=== PATIENT | female | born 1960 | race Caucasian/White ===

== ENCOUNTER 2018-05-15 07:24 | Emergency (ER) | payer OTHER ==
[~2018-05-15] VITALS: Ht 157.5 cm; Wt 72.7 kg
[~2018-05-15 07:24] MED LIST: ENAL2.5 PO; FURO40 PO; LEVO25TA4 PO; OLME1TAB13 PO
[2018-05-15] MEDS ORDERED: THYR30 PO (07:47)
[2018-05-15] MEDS ORDERED: HYDR25TA PO (07:47)
[2018-05-15] MEDS ORDERED: NITR.4 SL (07:47)
[2018-05-15] MEDS ORDERED: POTA25TA7 PO (07:47)
[2018-05-15] MEDS ORDERED: LISI-660 PO (07:47)
[2018-05-15] MEDS ORDERED: VERA80 PO (07:47)
[2018-05-15] MEDS ORDERED: CloNIDine HCL 0.1 MG TABLET PO ONE (08:00)
[2018-05-15 08:20] LABS: EOSINOPHILS % (AUTO) 3.1 % (1.0-6.0); HEMATOCRIT 40.1 % (36-46); HEMOGLOBIN 13.4 g/dL (12.0-16.0); LYMPHOCYTES # (AUTO) 1.4 K/uL (1.0-4.8); LYMPHOCYTES % (AUTO) 28.9 % (22.0-44.0); MEAN CORPUSCULAR HEMOGLOBIN 29.6 pg (26.0-34.0); MEAN CORPUSCULAR HGB CONC 33.5 G/dL (31.0-37.0); MEAN CORPUSCULAR VOLUME 88 fL (80-100); MONOCYTES # (AUTO) 0.3 K/uL (0.1-1.0); MONOCYTES % (AUTO) 6.8 % (2.0-9.0); NEUTROPHILS % (AUTO) 60.2 % (40.0-70.0); PLATELET COUNT (AUTO) 164 K/uL (150-450); RED BLOOD CELL COUNT(AUTO) 4.55 MIL/uL (4.00-5.20); RED CELL DISTRIBUTION WIDTH 13.2 % (11.5-14.5)
[2018-05-15 08:26] LABS: ANION GAP 7 mmol/L (8-16); CALCIUM, TOTAL 9.4 mg/dL (8.8-10.5); CARBON DIOXIDE 26 mmol/L (22-29); CHLORIDE 104 mmol/L (98-107); CREATININE 0.67 mg/dL (0.60-1.30); GLOMERULAR FILTR. RATE CALC > 60 mL/min (>60); GLUCOSE,RANDOM 107 mg/dL (70-110); POTASSIUM 3.9 mmol/L (3.5-5.1); SODIUM SERUM 137 mmol/L (136-145); UREA NITROGEN, BLOOD 16 mg/dL (7-18)
[2018-05-15 08:32] LABS: ALANINE AMINOTRANSFERASE 47 U/L (12-78); ALKALINE PHOSPHATASE 84 U/L (46-116); ASPARTATE AMINOTRANSFERASE 22 U/L (15-37); BILIRUBIN,TOTAL 0.4 mg/dL (0.1-1.0); LIPASE 105 U/L (73-393); TOTAL PROTEIN, SERUM 7.5 g/dL (6.4-8.2)
[2018-05-15 10:32] VITALS: BP 149/69
== END 2018-05-15 10:41 | disposition home or self-care (01) ==
LOC: EMS 07:26
DX: I11.0 Hypertensive heart disease with heart failure (principal); I50.9 Heart failure, unspecified; H53.9 Unspecified visual disturbance; E03.9 Hypothyroidism, unspecified; Z91.012 Allergy to eggs; Z91.011 Allergy to milk products; Z88.8 Allergy status to other drugs, medicaments and biological substances; Z91.018 Allergy to other foods
CPT/HCPCS: 70551; 93005; 99285

== ENCOUNTER → 2018-12-13 | Outpatient (CLI) | payer OTHER ==
[~2018-12-13] MED LIST changes: -ENAL2.5 PO; -FURO40 PO; +HYDR25TA PO; -LEVO25TA4 PO; +LISI-660 PO; +NITR.4 SL; -OLME1TAB13 PO; +POTA25TA7 PO; +THYR30 PO; +VERA80 PO
== END | disposition home or self-care (01) ==
LOC: RADPV 10:22
PROVIDERS: ATTEND Legal Medicine
DX: I70.0 Atherosclerosis of aorta (principal)

== ENCOUNTER → 2018-12-21 | Outpatient (CLI) | payer OTHER | END | disposition home or self-care (01) | LOC: RADPV 10:58 | PROVIDERS: ATTEND Legal Medicine | DX: I51.7 Cardiomegaly (principal); J18.9 Pneumonia, unspecified organism ==

== ENCOUNTER → 2019-01-02 | Outpatient (CLI) | payer OTHER ==
[~2019-01-02] MED LIST changes: +IOVERSOL 350 MG/ML 100 ML VIAL ONE; +SODIUM CHLORIDE 0.9% 100 ML ONE
== END | disposition home or self-care (01) ==
LOC: RADMN 09:26
PROVIDERS: ATTEND Legal Medicine
DX: R91.8 Other nonspecific abnormal finding of lung field (principal); I70.0 Atherosclerosis of aorta; I10 Essential (primary) hypertension
CPT/HCPCS: 71260; J7050; Q9967

== ENCOUNTER → 2020-07-29 | Outpatient (CLI) | payer OTHER ==
[~2020-07-29] MED LIST changes: +HYDR-1475 PO; -HYDR25TA PO; -IOVERSOL 350 MG/ML 100 ML VIAL ONE; -NITR.4 SL; +NITR0.4T52 SL; -SODIUM CHLORIDE 0.9% 100 ML ONE
== END | disposition home or self-care (01) ==
LOC: EMPHLTH 18:23
DX: Z20.828 Contact with and (suspected) exposure to other viral communicable diseases (principal)
CPT/HCPCS: 87426

== ENCOUNTER 2023-07-05 12:34 | Emergency (ER) | payer OTHER ==
[~2023-07-05] VITALS: Ht 157.5 cm; Wt 76.4 kg
[~2023-07-05 12:34] MED LIST changes: -HYDR-1475 PO; +HYDR25TA2 PO; -LISI-660 PO; +LISI-892 PO; -VERA80 PO; +VERA80TA11 PO
[2023-07-05 12:35] VITALS: TEMP 97.9
[2023-07-05 13:20] LABS: BASOPHILS % (AUTO) 1.1 % (0.0-2.0); EOSINOPHILS % (AUTO) 3.3 % (1.0-6.0); HEMATOCRIT 42.8 % (36-46); HEMOGLOBIN 14.1 g/dL (12.0-16.0); LYMPHOCYTES # (AUTO) 1.9 K/uL (1.0-4.8); LYMPHOCYTES % (AUTO) 30.1 % (22.0-44.0); MEAN CORPUSCULAR HEMOGLOBIN 30.7 pg (26.0-34.0); MEAN CORPUSCULAR HGB CONC 33.1 G/dL (31.0-37.0); MEAN CORPUSCULAR VOLUME 93 fL (80-100); MONOCYTES # (AUTO) 0.4 K/uL (0.1-1.0); MONOCYTES % (AUTO) 6.4 % (2.0-9.0); NEUTROPHILS # (AUTO) 3.8 K/uL (1.8-7.7); NEUTROPHILS % (AUTO) 59.1 % (40.0-70.0); PLATELET COUNT (AUTO) 152 K/uL (150-450); RED BLOOD CELL COUNT(AUTO) 4.61 MIL/uL (4.00-5.20); RED CELL DISTRIBUTION WIDTH 14.2 % (11.5-14.5)
[2023-07-05 13:39] LABS: ANION GAP 10 mmol/L (8-16); CALCIUM, TOTAL 9.6 mg/dL (8.8-10.5); CARBON DIOXIDE 28 mmol/L (22-29); CHLORIDE 102 mmol/L (98-107); CREATININE 0.68 mg/dL (0.60-1.30); GLOMERULAR FILTR. RATE CALC > 60 mL/min (>60); GLUCOSE,RANDOM 95 mg/dL (70-110); POTASSIUM 3.8 mmol/L (3.5-5.1); SODIUM SERUM 140 mmol/L (136-145)
[2023-07-05 13:45] LABS: B-TYPE NATRIURETIC PEPTIDE 57 pg/mL (0-100)
[2023-07-05 14:02] LABS: ALANINE AMINOTRANSFERASE 26 U/L (12-78); ALBUMIN 4.1 g/dL (3.4-5.0); ALKALINE PHOSPHATASE 100 U/L (46-116); ASPARTATE AMINOTRANSFERASE 18 U/L (15-37); BILIRUBIN,TOTAL 0.3 mg/dL (0.1-1.0); CREATINE KINASE, TOTAL ONLY 98 U/L (26-192); TOTAL PROTEIN, SERUM 7.4 g/dL (6.4-8.2)
[2023-07-05] MEDS ORDERED: CloNIDine HCL 0.1 MG TABLET PO ONE (14:15)
[2023-07-05 15:00] VITALS: BP 144/68; PULSE 60; RESP 16
== END 2023-07-05 17:42 | disposition home or self-care (01) ==
LOC: EMS 12:34
DX: R55 Syncope and collapse (principal); I11.0 Hypertensive heart disease with heart failure; I50.9 Heart failure, unspecified; Z90.721 Acquired absence of ovaries, unilateral; Z91.011 Allergy to milk products; Z91.012 Allergy to eggs; Z91.018 Allergy to other foods
CPT/HCPCS: 70450; 71045; 80053; 82550; 83880; 84484; 85025; 93005; 99285; 36415-L1; 36415-TC

== ENCOUNTER 2025-03-04 09:51 | Inpatient (IN) | payer MEDICARE, OTHER ==
[2025-03-04 10:23] LABS: BASOPHILS % (AUTO) 0.8 % (0.0-2.0); EOSINOPHILS % (AUTO) 2.1 % (1.0-6.0); HEMATOCRIT 39.3 % (36-46); LYMPHOCYTES # (AUTO) 1.6 K/uL (1.0-4.8); LYMPHOCYTES % (AUTO) 31.6 % (22.0-44.0); MEAN CORPUSCULAR HEMOGLOBIN 30.3 pg (26.0-34.0); MEAN CORPUSCULAR VOLUME 92 fL (80-100); MONOCYTES # (AUTO) 0.4 K/uL (0.1-1.0); MONOCYTES % (AUTO) 7.7 % (2.0-9.0); NEUTROPHILS % (AUTO) 57.8 % (40.0-70.0); PLATELET COUNT (AUTO) 168 K/uL (150-450); RED BLOOD CELL COUNT(AUTO) 4.29 MIL/uL (4.00-5.20); RED CELL DISTRIBUTION WIDTH 13.8 % (11.5-14.5); WHITE BLOOD COUNT (AUTO) 5.2 K/uL (4.5-11.0)
[2025-03-04 10:31] LABS: CALCIUM, TOTAL 10.2 mg/dL (8.8-10.5); CARBON DIOXIDE 30 mmol/L (22-29); CREATININE 0.66 mg/dL (0.60-1.30); GLOMERULAR FILTR. RATE CALC > 60 mL/min (>60); GLUCOSE,RANDOM 108 mg/dL (70-110); POTASSIUM 3.9 mmol/L (3.5-5.1); SODIUM SERUM 141 mmol/L (136-145); UREA NITROGEN, BLOOD 18 mg/dL (7-18)
[2025-03-04 10:36] LABS: ANION GAP 6 mmol/L (8-16); CHLORIDE 105 mmol/L (98-107)
[2025-03-04 10:37] LABS: TROPONIN I-HIGH SENSITIVITY 22 ng/L (<51)
[2025-03-04 10:40] LABS: ALANINE AMINOTRANSFERASE 29 U/L (12-78); ALBUMIN 3.7 g/dL (3.4-5.0); ALKALINE PHOSPHATASE 88 U/L (46-116); ASPARTATE AMINOTRANSFERASE 14 U/L (15-37); BILIRUBIN,TOTAL 0.3 mg/dL (0.1-1.0); TOTAL PROTEIN, SERUM 7.1 g/dL (6.4-8.2); TROPONIN I-HIGH SENSITIVITY 23 ng/L (<51)
[2025-03-04 10:48] LABS: PROTHROMBIN TIME 10.3 SEC (9.4-11.6)
[2025-03-04] MEDS: CLOPIDOGREL BISULFATE 75 MG TABLET PO ONE (11:17)
[2025-03-04] MEDS: ASPIRIN 300 MG RECTAL SUPPOSITORY PR ONE (11:18)
[2025-03-04] MEDS: LABETALOL HCL 5 MG/ML 20 ML VIAL IVP ONE (12:04)
[2025-03-04 12:20] LABS: CHOL/HDL RATIO 3.1 (3.9-5.7); CHOLESTEROL 126 mg/dL (131-200); HDL CHOLESTEROL 41 mg/dL (40-60); LDL CHOL (CALC.) 52 mg/dL (0-130); TRIGLYCERIDES 165 mg/dL (15-150)
[2025-03-04] MEDS: CloNIDine HCL 0.1 MG TABLET PO ONE (12:46)
[2025-03-04] MEDS ORDERED: SODIUM CHLORIDE 0.9% 100 ML ONE (15:15)
[2025-03-04] MEDS ORDERED: IOHEXOL 350 MG/ML 100 ML VIAL ONE (15:15)
[2025-03-04] MEDS ORDERED: BISACODYL 10 MG RECTAL RECTAL SUPPOSITORY PR PRN (15:30)
[2025-03-04] MEDS ORDERED: ACETAMINOPHEN 325 MG TABLET PO PRN (15:30)
[2025-03-04] MEDS ORDERED: MORPHINE SULFATE 2 MG/ML SYRINGE IVP PRN (15:30)
[2025-03-04] MEDS ORDERED: MAGNESIUM HYDROXIDE SUSPENSION 30 ML UDCUP PO PRN (15:30)
[2025-03-04] MEDS ORDERED: HYDROCODONE/ACETAMINOPHEN 5-325 MG TABLET PO PRN (15:30)
[2025-03-04] MEDS ORDERED: ONDANSETRON HCL 4 MG/2 ML VIAL IVP PRN (15:30)
[2025-03-04 15:34] VITALS: BP 131/59; PULSE 61; RESP 18; TEMP 97.8; O2SAT 98
[2025-03-04] MEDS: HEPARIN SODIUM,PORCINE 5,000 UNITS/ML VIAL SQ SCH (17:37)
[2025-03-04 19:41] VITALS: BP 148/61; PULSE 61; RESP 19; TEMP 97.9; O2SAT 98
[2025-03-04] MEDS: DOCUSATE SODIUM 100 MG CAPSULE PO SCH (21:00)
[2025-03-04 21:25] LABS: TROPONIN I-HIGH SENSITIVITY 46 ng/L (<51)
[2025-03-04 23:14] VITALS: BP 144/69; PULSE 62; RESP 18; TEMP 97.9; O2SAT 98
[2025-03-05 03:29] VITALS: BP 115/69; PULSE 73; RESP 18; TEMP 97.7; O2SAT 97
[2025-03-05 07:51] VITALS: BP 167/62; PULSE 65; RESP 18; TEMP 98.1; O2SAT 98
[2025-03-05] MEDS: PANTOPRAZOLE SODIUM 40 MG DR TABLET PO SCH (08:21)
[2025-03-05] MEDS: HYDROCHLOROTHIAZIDE 25 MG TABLET PO SCH (08:21)
[2025-03-05] MEDS: THYROID 30 MG TABLET PO SCH (08:21)
[2025-03-05] MEDS: LISINOPRIL 5 MG TABLET PO SCH (08:21)
[2025-03-05] MEDS: VERAPAMIL HCL 80 MG TABLET PO SCH (08:23)
[2025-03-05 12:17] VITALS: BP 143/59; PULSE 56; RESP 18; TEMP 98.2; O2SAT 99
[2025-03-05] MEDS: CLOPIDOGREL BISULFATE 75 MG TABLET PO SCH (14:57)
[2025-03-05] MEDS: ASPIRIN 81 MG CHEWABLE TABLET PO SCH (14:58)
[2025-03-05 16:00] VITALS: BP 141/66; PULSE 60; RESP 18; TEMP 97.9; O2SAT 97
[2025-03-05 19:58] VITALS: BP 137/64; PULSE 62; RESP 18; TEMP 98.1; O2SAT 97
[2025-03-05 23:38] VITALS: BP 142/50; PULSE 56; RESP 18; TEMP 98.8; O2SAT 97
[2025-03-06] VITALS (7 sets, daily range): BP systolic 132–160; BP diastolic 59–72; PULSE 51–61; RESP 18–21; TEMP 97.7–98.2; O2SAT 95–98
[2025-03-06 08:05] LABS: BASOPHILS % (AUTO) 0.9 % (0.0-2.0); EOSINOPHILS % (AUTO) 3.7 % (1.0-6.0); HEMOGLOBIN 13.2 g/dL (12.0-16.0); LYMPHOCYTES # (AUTO) 1.6 K/uL (1.0-4.8); LYMPHOCYTES % (AUTO) 29.8 % (22.0-44.0); MEAN CORPUSCULAR HEMOGLOBIN 30.1 pg (26.0-34.0); MEAN CORPUSCULAR VOLUME 91 fL (80-100); MONOCYTES # (AUTO) 0.4 K/uL (0.1-1.0); MONOCYTES % (AUTO) 8.1 % (2.0-9.0); NEUTROPHILS # (AUTO) 3.1 K/uL (1.8-7.7); NEUTROPHILS % (AUTO) 57.5 % (40.0-70.0); PLATELET COUNT (AUTO) 167 K/uL (150-450); RED BLOOD CELL COUNT(AUTO) 4.38 MIL/uL (4.00-5.20); RED CELL DISTRIBUTION WIDTH 13.7 % (11.5-14.5); WHITE BLOOD COUNT (AUTO) 5.5 K/uL (4.5-11.0)
[2025-03-06 08:09] LABS: ANION GAP 8 mmol/L (8-16); CARBON DIOXIDE 29 mmol/L (22-29); CHLORIDE 104 mmol/L (98-107); CREATININE 0.53 mg/dL (0.60-1.30); GLOMERULAR FILTR. RATE CALC > 60 mL/min (>60); GLUCOSE,RANDOM 97 mg/dL (70-110); POTASSIUM 3.9 mmol/L (3.5-5.1); SODIUM SERUM 141 mmol/L (136-145); UREA NITROGEN, BLOOD 24 mg/dL (7-18)
[2025-03-06] MEDS: ATORVASTATIN CALCIUM 20 MG TABLET PO SCH (21:03)
[2025-03-07 03:27] VITALS: BP 144/64; PULSE 59; RESP 20; TEMP 97.9; O2SAT 98
[2025-03-07 06:52] LABS: BASOPHILS % (AUTO) 0.8 % (0.0-2.0); EOSINOPHILS % (AUTO) 4.1 % (1.0-6.0); HEMOGLOBIN 14.1 g/dL (12.0-16.0); LYMPHOCYTES % (AUTO) 30.5 % (22.0-44.0); MEAN CORPUSCULAR HGB CONC 32.9 G/dL (31.0-37.0); MEAN CORPUSCULAR VOLUME 91 fL (80-100); MONOCYTES # (AUTO) 0.4 K/uL (0.1-1.0); NEUTROPHILS # (AUTO) 3.7 K/uL (1.8-7.7); NEUTROPHILS % (AUTO) 57.6 % (40.0-70.0); PLATELET COUNT (AUTO) 185 K/uL (150-450); RED BLOOD CELL COUNT(AUTO) 4.72 MIL/uL (4.00-5.20); RED CELL DISTRIBUTION WIDTH 13.9 % (11.5-14.5); WHITE BLOOD COUNT (AUTO) 6.4 K/uL (4.5-11.0)
[2025-03-07 07:07] LABS: ANION GAP 6 mmol/L (8-16); CALCIUM, TOTAL 10.1 mg/dL (8.8-10.5); CARBON DIOXIDE 30 mmol/L (22-29); CHLORIDE 103 mmol/L (98-107); GLOMERULAR FILTR. RATE CALC > 60 mL/min (>60); GLUCOSE,RANDOM 106 mg/dL (70-110); POTASSIUM 3.7 mmol/L (3.5-5.1); SODIUM SERUM 139 mmol/L (136-145); UREA NITROGEN, BLOOD 22 mg/dL (7-18)
[2025-03-07] MEDS ORDERED: ATOR20TA PO (13:40)
[2025-03-07] MEDS ORDERED: ASPI-1450 PO (13:40)
[2025-03-07] MEDS ORDERED: CLOP75TA33 PO (13:41)
[2025-03-07] MEDS ORDERED: PANT-31 PO (13:42)
[2025-03-07] MEDS ORDERED: ACET-2247 PO (13:43)
[2025-03-07] MEDS ORDERED: MAGN-169 PO (13:44)
[2025-03-07] MEDS ORDERED: BISA10SU11 PR (13:44)
[2025-03-07] MEDS ORDERED: APIX5TAB PO (13:45)
[2025-03-07 14:00] VITALS: BP 148/68; PULSE 63; RESP 18; TEMP 97.9
== END 2025-03-07 14:35 | DRG 65 ==
LOC: EMS 09:51 → EDH 13:15 → 5N 15:00
PROVIDERS: ADMIT Internal Medicine; ATTEND Internal Medicine
DX: I63.9 Cerebral infarction, unspecified (principal); G81.94 Hemiplegia, unspecified affecting left nondominant side; I16.0 Hypertensive urgency; I11.0 Hypertensive heart disease with heart failure; I50.9 Heart failure, unspecified; E89.0 Postprocedural hypothyroidism; I48.0 Paroxysmal atrial fibrillation; Z79.01 Long term (current) use of anticoagulants; Z79.02 Long term (current) use of antithrombotics/antiplatelets; Z79.82 Long term (current) use of aspirin; Z85.850 Personal history of malignant neoplasm of thyroid; Z86.718 Personal history of other venous thrombosis and embolism; Z86.73 Personal history of transient ischemic attack (TIA), and cerebral infarction without residual deficits; Z79.899 Other long term (current) drug therapy; Z88.8 Allergy status to other drugs, medicaments and biological substances; Z91.012 Allergy to eggs; Z91.011 Allergy to milk products; Z91.018 Allergy to other foods
CPT/HCPCS: 70496; 70498; 70551; 71045; 80048; 80053; 80061; 82948; 83036; 83880; 84443; 84484; 85025; 85610; 85730; 86850; 86900; 86901; 92526; 92610; 93005; 93306; 93880; 96374; 97110; 97112; 97163; 97167; 97530; 97535; 99285; J1644; J3490; J7050; 36415-L1; 36415-TC; 70450; 70450-TC

== ENCOUNTER 2025-03-06 17:45 | Inpatient (IN) | payer MEDICARE, OTHER ==
[~2025-03-06] VITALS: Ht 157.5 cm; Wt 87.5 kg
[2025-03-07] MEDS ORDERED: ATOR20TA PO (13:40)
[2025-03-07] MEDS ORDERED: ASPI-1450 PO (13:40)
[2025-03-07] MEDS ORDERED: CLOP75TA83 PO (13:41)
[2025-03-07] MEDS ORDERED: PANT-31 PO (13:42)
[2025-03-07] MEDS ORDERED: ACET-2247 PO (13:43)
[2025-03-07] MEDS ORDERED: MAGN-169 PO (13:44)
[2025-03-07] MEDS ORDERED: BISA10SU11 PR (13:44)
[2025-03-07] MEDS ORDERED: APIX5TAB PO (13:45)
[2025-03-07 14:35] VITALS: BP 131/63; PULSE 63; RESP 18; TEMP 97.5; O2SAT 98
[2025-03-07] MEDS ORDERED: BISACODYL 10 MG RECTAL RECTAL SUPPOSITORY PR PRN (16:30)
[2025-03-07] MEDS ORDERED: ACETAMINOPHEN 325 MG TABLET PO PRN (16:30)
[2025-03-07] MEDS ORDERED: ONDANSETRON 4 MG TABLET PO PRN (16:30)
[2025-03-07] MEDS ORDERED: MAGNESIUM HYDROXIDE SUSPENSION 30 ML UDCUP PO PRN (16:30)
[2025-03-07 22:16] VITALS: BP 135/58; PULSE 78; RESP 18; TEMP 98.1; O2SAT 94
[2025-03-07] MEDS: DOCUSATE SODIUM 100 MG CAPSULE PO SCH (22:17)
[2025-03-07] MEDS: ETHYL ALCOHOL 62% ANTISEPTIC NASAL SANITIZER 0.6 ML AMPUL NASAL SCH (22:17)
[2025-03-07] MEDS: ATORVASTATIN CALCIUM 20 MG TABLET PO SCH (22:17)
[2025-03-08 02:21] VITALS: O2SAT 94
[2025-03-08] MEDS: THYROID 30 MG TABLET PO SCH (06:09)
[2025-03-08 08:02] VITALS: BP 151/59; PULSE 66; RESP 18; TEMP 97.9; O2SAT 96
[2025-03-08 08:06] LABS: EOSINOPHILS % (AUTO) 4.9 % (1.0-6.0); HEMATOCRIT 43.2 % (36-46); HEMOGLOBIN 14.2 g/dL (12.0-16.0); LYMPHOCYTES % (AUTO) 28.1 % (22.0-44.0); MEAN CORPUSCULAR HEMOGLOBIN 29.8 pg (26.0-34.0); MEAN CORPUSCULAR HGB CONC 32.8 G/dL (31.0-37.0); MEAN CORPUSCULAR VOLUME 91 fL (80-100); MONOCYTES # (AUTO) 0.6 K/uL (0.1-1.0); NEUTROPHILS # (AUTO) 4.2 K/uL (1.8-7.7); PLATELET COUNT (AUTO) 174 K/uL (150-450); RED BLOOD CELL COUNT(AUTO) 4.75 MIL/uL (4.00-5.20); RED CELL DISTRIBUTION WIDTH 13.8 % (11.5-14.5); WHITE BLOOD COUNT (AUTO) 7.2 K/uL (4.5-11.0)
[2025-03-08 08:18] LABS: ALANINE AMINOTRANSFERASE 60 U/L (12-78); ALBUMIN 3.5 g/dL (3.4-5.0); ALKALINE PHOSPHATASE 80 U/L (46-116); ANION GAP 7 mmol/L (8-16); ASPARTATE AMINOTRANSFERASE 33 U/L (15-37); BILIRUBIN,TOTAL 0.6 mg/dL (0.1-1.0); CARBON DIOXIDE 28 mmol/L (22-29); CHLORIDE 101 mmol/L (98-107); CREATININE 0.69 mg/dL (0.60-1.30); GLOMERULAR FILTR. RATE CALC > 60 mL/min (>60); GLUCOSE,RANDOM 112 mg/dL (70-110); SODIUM SERUM 136 mmol/L (136-145); TOTAL PROTEIN, SERUM 7.1 g/dL (6.4-8.2); UREA NITROGEN, BLOOD 23 mg/dL (7-18)
[2025-03-08] MEDS: ASPIRIN 81 MG CHEWABLE TABLET PO SCH (08:35)
[2025-03-08] MEDS: VERAPAMIL HCL 80 MG TABLET PO SCH (08:36)
[2025-03-08] MEDS: hydroCHLOROthiazide 25 MG TABLET PO SCH (08:36)
[2025-03-08] MEDS: PANTOPRAZOLE SODIUM 40 MG DR TABLET PO SCH (08:37)
[2025-03-08] MEDS: CLOPIDOGREL BISULFATE 75 MG TABLET PO SCH (08:37)
[2025-03-08] MEDS: lisinopriL 5 MG TABLET PO SCH (08:37)
[2025-03-08 09:00] VITALS: BP 151/62; PULSE 70; RESP 18
[2025-03-08 11:34] VITALS: BP 149/76; PULSE 75; RESP 18
[2025-03-08 19:50] VITALS: BP 133/55; PULSE 70; RESP 18; TEMP 97.8; O2SAT 94
[2025-03-09 08:00] VITALS: BP 139/66; PULSE 72; RESP 18; TEMP 98.2; O2SAT 100
[2025-03-09 20:00] VITALS: BP 145/64; PULSE 76; RESP 18; TEMP 98.4; O2SAT 97
[2025-03-10 08:00] VITALS: BP 119/58; PULSE 71; RESP 19; TEMP 97.7; O2SAT 97
[2025-03-10 20:00] VITALS: BP 135/51; PULSE 76; RESP 18; TEMP 98.2; O2SAT 96
[2025-03-11 08:00] VITALS: BP 154/54; PULSE 64; RESP 20; TEMP 97.7; O2SAT 99
[2025-03-11 12:26] VITALS: BP 131/61; PULSE 73; RESP 19; O2SAT 98
[2025-03-11 20:00] VITALS: BP 152/61; PULSE 18; RESP 18; TEMP 98.1; O2SAT 98
[2025-03-12 08:00] VITALS: BP 138/58; PULSE 18; PULSE 62; RESP 18; TEMP 98.1; O2SAT 98
[2025-03-12] MEDS: APIXABAN 5 MG TABLET PO SCH (08:11)
[2025-03-12 19:52] VITALS: BP 147/59; PULSE 18; RESP 18; TEMP 97.7; O2SAT 98
[2025-03-12 22:59] VITALS: O2SAT 98
[2025-03-13 08:00] VITALS: BP 121/86; PULSE 55; RESP 19; TEMP 97.7; O2SAT 97
[2025-03-13 18:08] LABS: APPEARANCE,URINE CLEAR (CLEAR); BILIRUBIN,URINE NEGATIVE (NEGATIVE); COLOR,URINE YELLOW (YELLOW); GLUCOSE, URINE (UA) NEGATIVE (NEGATIVE); KETONES,URINE NEGATIVE (NEGATIVE); LEUKOCYTE ESTERASE ,URINE MODERATE (NEGATIVE); NITRATE,URINE NEGATIVE (NEGATIVE); OCCULT BLOOD,URINE NEGATIVE (NEGATIVE); PROTEIN,URINE NEGATIVE (NEGATIVE); SPECIFIC GRAVITIY, URINE 1.022 (1.003-1.030)
[2025-03-13 18:24] LABS: BACTERIA,URINE Many /HPF (None Seen); RBC,URINE None Seen /HPF (0-2); SQUAMOUS EPITHELIAL CELL,UR Rare /LPF (None Seen)
[2025-03-13 20:19] VITALS: BP 140/68; PULSE 63; RESP 19; TEMP 97; O2SAT 97
[2025-03-14 01:28] VITALS: O2SAT 97
[2025-03-14 07:44] LABS: BASOPHILS % (AUTO) 0.9 % (0.0-2.0); EOSINOPHILS % (AUTO) 4.6 % (1.0-6.0); HEMOGLOBIN 12.8 g/dL (12.0-16.0); LYMPHOCYTES % (AUTO) 33.9 % (22.0-44.0); MEAN CORPUSCULAR HEMOGLOBIN 29.7 pg (26.0-34.0); MEAN CORPUSCULAR HGB CONC 32.8 G/dL (31.0-37.0); MEAN CORPUSCULAR VOLUME 91 fL (80-100); MONOCYTES # (AUTO) 0.5 K/uL (0.1-1.0); MONOCYTES % (AUTO) 8.8 % (2.0-9.0); NEUTROPHILS % (AUTO) 51.8 % (40.0-70.0); PLATELET COUNT (AUTO) 133 K/uL (150-450); RED BLOOD CELL COUNT(AUTO) 4.31 MIL/uL (4.00-5.20); RED CELL DISTRIBUTION WIDTH 13.9 % (11.5-14.5); WHITE BLOOD COUNT (AUTO) 5.8 K/uL (4.5-11.0)
[2025-03-14 08:00] VITALS: BP 147/58; PULSE 77; RESP 18; TEMP 97.4; O2SAT 98
[2025-03-14 08:15] LABS: ANION GAP 8 mmol/L (8-16); CALCIUM, TOTAL 9.6 mg/dL (8.8-10.5); CARBON DIOXIDE 28 mmol/L (22-29); CHLORIDE 103 mmol/L (98-107); GLOMERULAR FILTR. RATE CALC > 60 mL/min (>60); GLUCOSE,RANDOM 98 mg/dL (70-110); POTASSIUM 3.7 mmol/L (3.5-5.1); SODIUM SERUM 139 mmol/L (136-145); UREA NITROGEN, BLOOD 17 mg/dL (7-18)
[2025-03-14 20:12] VITALS: BP 136/58; PULSE 62; RESP 18; TEMP 98.4; O2SAT 98
[2025-03-15] VITALS (7 sets, daily range): BP systolic 102–137; BP diastolic 41–58; PULSE 55–58; RESP 17–18; TEMP 97.8–98.2; O2SAT 83–100
[2025-03-15] MEDS: SERTRALINE HCL 50 MG TABLET PO SCH (10:53)
[2025-03-16] MEDS ORDERED: DOCU-385 PO (02:31)
[2025-03-16 08:54] VITALS: BP 115/41; PULSE 50; RESP 18; TEMP 97.8; O2SAT 99
[2025-03-16 20:00] VITALS: O2SAT 97
[2025-03-17 00:33] VITALS: BP 132/59; PULSE 60; RESP 18; TEMP 98.9; O2SAT 97
[2025-03-17 08:00] VITALS: BP 138/55; PULSE 59; RESP 18; TEMP 98.2; O2SAT 97
[2025-03-17 20:00] VITALS: BP 135/52; PULSE 57; RESP 18; TEMP 98.1; O2SAT 96
[2025-03-18 08:45] VITALS: BP 141/61; PULSE 55; RESP 18; TEMP 98.6; O2SAT 95
[2025-03-18 21:00] VITALS: BP 136/87; PULSE 67; RESP 18; TEMP 98.4; O2SAT 98
[2025-03-19 00:37] VITALS: O2SAT 98
[2025-03-19 08:00] VITALS: BP 148/66; PULSE 63; RESP 18; TEMP 98.4; O2SAT 99
[2025-03-19 20:00] VITALS: O2SAT 99
[2025-03-19 21:30] VITALS: BP 131/52; PULSE 60; RESP 18; TEMP 98.2; O2SAT 98
[2025-03-20 08:00] VITALS: BP 133/62; PULSE 56; RESP 18; TEMP 97.9; O2SAT 98
[2025-03-20 20:00] VITALS: BP 135/55; PULSE 62; RESP 20; TEMP 98.2; O2SAT 96
[2025-03-21 07:45] VITALS: BP 119/50; PULSE 52; RESP 18; TEMP 98.1; O2SAT 96
[2025-03-21 11:22] VITALS: O2SAT 96
[2025-03-21 20:15] VITALS: BP 124/56; PULSE 63; RESP 18; TEMP 98.8; O2SAT 97
[2025-03-21 23:07] VITALS: O2SAT 97
[2025-03-22 08:00] VITALS: BP 134/63; PULSE 55; RESP 18; TEMP 97.7; O2SAT 100
[2025-03-22 20:00] VITALS: BP 132/62; PULSE 59; RESP 18; TEMP 99; O2SAT 99
[2025-03-23 08:10] VITALS: BP 137/60; PULSE 56; RESP 18; TEMP 98.7; O2SAT 100
[2025-03-23 09:20] VITALS: O2SAT 100
[2025-03-23 19:47] VITALS: BP 122/49; PULSE 57; RESP 18; TEMP 98.8; O2SAT 99
[2025-03-23 20:33] VITALS: O2SAT 99
[2025-03-24 08:00] VITALS: BP 131/59; PULSE 55; RESP 18; TEMP 97.8; O2SAT 99
[2025-03-24 20:00] VITALS: BP 134/58; PULSE 59; RESP 18; TEMP 98.2; O2SAT 99
[2025-03-25 08:30] VITALS: BP 162/71; PULSE 61; RESP 18; TEMP 97.3; O2SAT 100
[2025-03-25 10:59] VITALS: O2SAT 98
[2025-03-25] MEDS ORDERED: DOCUSATE SODIUM 100 MG CAPSULE PO PRN (19:15)
[2025-03-25 20:00] VITALS: BP 150/70; PULSE 56; RESP 18; TEMP 98.2; O2SAT 100
[2025-03-25 20:30] VITALS: BP 148/57; PULSE 56; RESP 18; O2SAT 100
[2025-03-25 22:54] VITALS: O2SAT 100
[2025-03-26 07:50] VITALS: BP 117/59; PULSE 51; RESP 16; TEMP 97.9; O2SAT 98
[2025-03-26 08:00] VITALS: O2SAT 98
[2025-03-26 20:00] VITALS: BP 144/58; PULSE 55; RESP 18; TEMP 97.5; O2SAT 98
[2025-03-27 08:00] VITALS: BP 147/61; PULSE 72; RESP 18; TEMP 98.2; O2SAT 99
[2025-03-27 20:38] VITALS: BP 142/49; PULSE 59; RESP 18; TEMP 98; O2SAT 98
[2025-03-28 03:24] VITALS: O2SAT 98
[2025-03-28 08:00] VITALS: BP 148/53; PULSE 58; RESP 17; TEMP 98.1; O2SAT 99
[2025-03-28] MEDS ORDERED: HYDR25TA PO (11:57)
[2025-03-28] MEDS ORDERED: SERT-439 PO (11:57)
[2025-03-28] MEDS ORDERED: VERA80TA11 PO (11:57)
[2025-03-28] MEDS ORDERED: APIX5TAB PO (11:57)
[2025-03-28] MEDS ORDERED: ASPI-1450 PO (11:57)
[2025-03-28] MEDS ORDERED: LISI-892 PO (11:57)
[2025-03-28] MEDS ORDERED: THYR30TA24 PO (11:57)
[2025-03-28] MEDS ORDERED: ATOR20TA65 PO (11:57)
[2025-03-28] MEDS ORDERED: PANT-31 PO (11:57)
[2025-03-28 21:00] VITALS: BP 120/55; PULSE 57; RESP 18; TEMP 98.4; O2SAT 97
[2025-03-28 21:38] VITALS: O2SAT 97
[2025-03-29 08:00] VITALS: BP 125/57; PULSE 56; RESP 18; TEMP 98.4; O2SAT 98
== END 2025-03-29 13:00 | disposition home or self-care (01) | DRG 57 ==
LOC: 2WR 03-07 14:30
PROVIDERS: ADMIT Physical Medicine & Rehabilitation; ATTEND Physical Medicine & Rehabilitation
DX: I69.354 Hemiplegia and hemiparesis following cerebral infarction affecting left non-dominant side (principal); K59.2 Neurogenic bowel, not elsewhere classified; I10 Essential (primary) hypertension; E89.0 Postprocedural hypothyroidism; E78.5 Hyperlipidemia, unspecified; E66.9 Obesity, unspecified; G47.33 Obstructive sleep apnea (adult) (pediatric); N31.9 Neuromuscular dysfunction of bladder, unspecified; I48.0 Paroxysmal atrial fibrillation; R82.71 Bacteriuria; F32.A Depression, unspecified; Z74.09 Other reduced mobility; Z74.1 Need for assistance with personal care; R03.0 Elevated blood-pressure reading, without diagnosis of hypertension; R41.89 Other symptoms and signs involving cognitive functions and awareness; Z71.3 Dietary counseling and surveillance; Z79.01 Long term (current) use of anticoagulants; Z68.35 Body mass index [BMI] 35.0-35.9, adult
CPT/HCPCS: 80048; 80053; 81001; 83036; 85025; 87077; 87081; 87086; 87186; 92507; 92523; 92526; 97110; 97112; 97116; 97150; 97163; 97167; 97530; 97535; 99366